=== PATIENT | female | born 1945 | race Caucasian/White ===

== ENCOUNTER 2017-03-02 20:13 | Emergency (ER) | payer MEDICARE, OTHER ==
[~2017-03-02] VITALS: Ht 162.6 cm; Wt 51.0 kg
[~2017-03-02 20:13] MED LIST: ACET650T10 PR; ARIC10TA PO; ASAC400T PO; ASPI81 PO; CELE20TA PO; DARV PO; DEPA250T PO; FISH1000 PO; GLYB1TAB51 PO; HUMULIN 70/30; LEVA0.6316 NEB; LEVO88TA21 PO; LOPE2 PO; LORA10TA7 PO; METH500T3 PO; MIRA0.5T PO; MOME17I; NAPR500 PO; NEUR800T PO; OXYB5TAB33 PO; OYST500T77 PO; PRAV20TA67 PO; PRO-AIR INH; RANI150 PO; STOO100C PO; SYSTANE; TAB-TAB PO; THEO100C PO; [UNRECOGNIZED DRUG - OTHER] PO
[2017-03-02 20:38] VITALS: BP 151/80; PULSE 90; RESP 20; TEMP 98.1; O2SAT 97
[2017-03-02 22:01] VITALS: BP 149/67; PULSE 81; RESP 18; O2SAT 99
[2017-03-02] MEDS ORDERED: METF500T4 PO (22:03)
[2017-03-02] MEDS ORDERED: LISI-519 PO (22:03)
[2017-03-02] MEDS ORDERED: LEVO88TA2 PO (22:04)
[2017-03-02] MEDS ORDERED: OMEP40CA2 PO (22:04)
[2017-03-02] MEDS ORDERED: ASPI325T PO (22:04)
[2017-03-02] MEDS ORDERED: FOSA70TA PO (22:05)
[2017-03-02] MEDS ORDERED: GLIP1TAB51 PO (22:05)
[2017-03-02] MEDS ORDERED: ROSU20 PO (22:05)
[2017-03-02] MEDS ORDERED: LANTUS2P SQ (22:06)
[2017-03-02] MEDS ORDERED: GABA800T PO (22:06)
[2017-03-02] MEDS ORDERED: NOVO7030P2 SQ (22:06)
[2017-03-02] MEDS ORDERED: farxiga PO (22:23)
--- NOTE | 2017-03-02 22:25 | PD ---
HPI Chief Complaint: Medical Clearance Time Seen by Provider: 22:07 Travel History International Travel<30 days: No Contact w/Intl Traveler<30days: No Traveled to known affect area: No History of Present Illness HPI The patient is a 71-year-old female who presents to the emergency department as a Bonner act. The patient apparently met with her physician earlier today, Dr. Ochoa, and when he asked her about her depression and possible suicidal ideation, the patient did state that she occasionally has also suicide. 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 The patient states the neighbor across the street is currently with her partner at home. The patient does have a history of depression, denies any current suicidal plan that she does have intermittent thoughts of suicide. She denies any hallucinations or delusions. She does have a history of diabetes for which she takes oral medications and insulin. She denies any physical complaints, alcohol use, or illicit drug use. She does smoke and has a history of COPD. PFSH Past Medical History Arthritis: Yes Blood Disorders: Yes (HX BLEEDING COLON (HAD COLON RESECTION)) Anxiety: Yes Depression: Yes Cancer: No Cardiovascular Problems: No High Cholesterol: Yes COPD: Yes Diabetes: Yes Patient Takes Glucophage: Yes Endocrine: Yes Gastrointestinal Disorders: Yes (HX DIVERTICULITIS WITH COLON RESECTION) GERD: Yes Glaucoma: No Genitourinary: No Hepatitis: No Hiatal Hernia: No Hypertension: No Immune Disorder: No (POSSIBLE FIBROMYALGIA) Implanted Vascular Access Dvce: Yes Medical other: Yes (LUMBAR STENOSIS, SHORT TERM MEMORY PROBLEMS) Musculoskeletal: Yes Neurologic: Yes Psychiatric: Yes Reproductive: No Respiratory: Yes (COPD, SLEEP APNEA) Sleep Apnea: Yes Thyroid Disease: Yes (HYPOTHYROIDISM) Ulcer: Yes Past Surgical History Abdominal Surgery: Yes (APPENDECTOMY; COLON RESECTION) Appendectomy: Yes Body Medical Devices: EYE LENS S/P CATARACT SX Cardiac Surgery: No Ear Surgery: No Endocrine Surgery: No Eye Surgery: Yes (BILATERAL CATARACT SX WITH LENS IMPLANTS) Genitourinary Surgery: No ( ) Gynecologic Surgery: No Neurologic Surgery: No Oral Surgery: Yes (TONSILECTOMY) Pacemaker: No Thoracic Surgery: No Other Surgery: Yes (ORIF RIGHT WRIST) Social History Alcohol Use: No Tobacco Use: Yes (5PPD,CIGARETS, 50 YEARS) Substance Use: No Allergies-Medications (Allergen,Severity, Reaction): Coded Allergies: Seroquel (Verified Allergy, Severe, 03/02/17) Talwin (Verified Allergy, Severe, 03/02/17) Wellbutrin (Verified Allergy, Severe, 03/02/17) Codeine (Unverified Allergy, Intermediate, NAUSEA, 03/02/17) Lortab (Unverified Allergy, Intermediate, NAUSEA, 03/02/17) Valium (Unverified Allergy, Intermediate, DISORIENTED, 03/02/17) Reported Meds & Prescriptions Reported Meds & Active Scripts Active Reported [farxiga] 5 Mg PO QID Lantus Inj (Insulin Glargine) 1,000 Unit/10 Ml Vial 40 Units SQ HS Novolin 70-30 Inj (Insulin Human Isoph/Insulin Regular) 1,000 Unit/10 Ml Vial 15 Units SQ TID Gabapentin 800 Mg Tab 800 Mg PO TID Fosamax (Alendronate Sodium) 70 Mg Tab 35 Mg PO Q7D Glipizide ER (Glipizide) 10 Mg Felipa 10 Mg PO BID Take with breakfast or first main meal of the day Crestor (Rosuvastatin Calcium) 20 Mg Tab 20 Mg PO DAILY Aspirin 325 Mg Tab 325 Mg PO DAILY Levothyroxine (Levothyroxine Sodium) 88 Mcg Tab 88 Mcg PO DAILY Omeprazole 40 Mg Cap 40 Mg PO DAILY Metformin ER (Metformin HCl) 500 Mg Felipa 500 Mg PO DAILY With evening meal Lisinopril 5 Mg Tab 5 Mg PO DAILY Review of Systems Except as stated in HPI: all other systems reviewed are Neg General / Constitutional: No: Fever Cardiovascular: No: Chest Pain or Discomfort Respiratory: No: Shortness of Breath Gastrointestinal: No: Nausea, Vomiting, Abdominal Pain Genitourinary: No: Dysuria Musculoskeletal: No: Weakness Psychiatric: Positive: Depression, Suicidal Ideations, No: Substance Abuse, Homicidal Ideation Physical Exam Narrative GENERAL: Awake, alert, pleasant 71-year-old female who appears her stated age is in no acute respiratory distress. SKIN: Focused skin assessment warm/dry. HEAD: Atraumatic. Normocephalic. EYES: No injection or drainage. ENT: No nasal bleeding or discharge. Upper dentures in place. Slightly dry mucous membranes. NECK: Trachea midline. No JVD. CARDIOVASCULAR: Regular rate and rhythm. No murmur appreciated. RESPIRATORY: No accessory muscle use. Clear to auscultation. Breath sounds equal bilaterally. GASTROINTESTINAL: Abdomen soft, non-tender, nondistended. No rebound tenderness. MUSCULOSKELETAL: No obvious deformities. No clubbing. No cyanosis. No edema. NEUROLOGICAL: Awake and alert. No obvious cranial nerve deficits. Motor grossly within normal limits. Normal speech. Nonfocal. Oriented 4. Follows commands without difficulty. PSYCHIATRIC: Appropriate mood and affect; insight and judgment normal. Data Data Last Documented VS Vital Signs Date Time Temp Pulse Resp B/P Pulse Ox O2 Delivery O2 Flow Rate FiO2 03/02/17 22:01 81 18 149/67 99 Room Air 03/02/17 20:38 98.1 Orders Complete Blood Count With Diff (03/02/17 20:42) Comprehensive Metabolic Panel (03/02/17 20:42) Urinalysis - C+S If Indicated (03/02/17 20:42) Psych Screen (03/02/17 20:42) Drug Screen, Random Urine (03/02/17 20:42) Alcohol (Ethanol) (03/02/17 20:42) Sodium Chlorid 0.9% 500 Ml Inj (Ns 500 M (03/02/17 22:30) Urine Culture (03/02/17 22:10) Labs Laboratory Tests Test 03/02/17 22:10 White Blood Count 11.7 TH/MM3 Red Blood Count 4.73 MIL/MM3 Hemoglobin 14.1 GM/DL Hematocrit 41.7 % Mean Corpuscular Volume 88.1 FL Mean Corpuscular Hemoglobin 29.7 PG Mean Corpuscular Hemoglobin 33.7 % Concent Red Cell Distribution Width 13.3 % Platelet Count 295 TH/MM3 Mean Platelet Volume 9.6 FL Neutrophils (%) (Auto) 59.7 % Lymphocytes (%) (Auto) 31.8 % Monocytes (%) (Auto) 6.1 % Eosinophils (%) (Auto) 2.1 % Basophils (%) (Auto) 0.3 % Neutrophils # (Auto) 7.0 TH/MM3 Lymphocytes # (Auto) 3.7 TH/MM3 Monocytes # (Auto) 0.7 TH/MM3 Eosinophils # (Auto) 0.2 TH/MM3 Basophils # (Auto) 0.0 TH/MM3 CBC Comment DIFF FINAL Differential Comment Urine Color YELLOW Urine Turbidity HAZY Urine pH 5.5 Urine Specific [place] 1.014 Urine Protein NEG mg/dL Urine Glucose (UA) 1000 mg/dL Urine Ketones NEG mg/dL Urine Occult Blood NEG Urine Nitrite NEG Urine Bilirubin NEG Urine Urobilinogen LESS THAN 2.0 MG/DL Urine Leukocyte Esterase LARGE Urine RBC 2 /hpf Urine WBC 52 /hpf Urine Squamous Epithelial <1 /hpf Cells Urine Hyaline Casts 1 /lpf Urine Mucus FEW /lpf Microscopic Urinalysis Comment CULTURE INDICATED Sodium Level 132 MEQ/L Potassium Level 4.3 MEQ/L Chloride Level 96 MEQ/L Carbon Dioxide Level 29.7 MEQ/L Anion Gap 6 MEQ/L Blood Urea Nitrogen 11 MG/DL Creatinine 1.04 MG/DL Estimat Glomerular Filtration 52 ML/MIN Rate Random Glucose 299 MG/DL Calcium Level 9.0 MG/DL Total Bilirubin 0.3 MG/DL Aspartate Amino Transf 11 U/L (AST/SGOT) Alanine Aminotransferase 19 U/L (ALT/SGPT) Alkaline Phosphatase 93 U/L Total Protein 7.9 GM/DL Albumin 3.7 GM/DL Urine Opiates Screen NEG Urine Barbiturates Screen NEG Urine Amphetamines Screen NEG Urine Benzodiazepines Screen NEG Urine Cocaine Screen NEG Urine Cannabinoids Screen NEG Ethyl Alcohol Level LESS THAN 3 MG/DL MDM Medical Decision Making Medical Screen Exam Complete: Yes Emergency Medical Condition: Yes Medical Record Reviewed: Yes Interpretation(s) Laboratory Tests Test 03/02/17 22:10 White Blood Count 11.7 TH/MM3 Red Blood Count 4.73 MIL/MM3 Hemoglobin 14.1 GM/DL Hematocrit 41.7 % Mean Corpuscular Volume 88.1 FL Mean Corpuscular Hemoglobin 29.7 PG Mean Corpuscular Hemoglobin 33.7 % Concent Red Cell Distribution Width 13.3 % Platelet Count 295 TH/MM3 Mean Platelet Volume 9.6 FL Neutrophils (%) (Auto) 59.7 % Lymphocytes (%) (Auto) 31.8 % Monocytes (%) (Auto) 6.1 % Eosinophils (%) (Auto) 2.1 % Basophils (%) (Auto) 0.3 % Neutrophils # (Auto) 7.0 TH/MM3 Lymphocytes # (Auto) 3.7 TH/MM3 Monocytes # (Auto) 0.7 TH/MM3 Eosinophils # (Auto) 0.2 TH/MM3 Basophils # (Auto) 0.0 TH/MM3 CBC Comment DIFF FINAL Differential Comment Urine Color YELLOW Urine Turbidity HAZY Urine pH 5.5 Urine Specific [place] 1.014 Urine Protein NEG mg/dL Urine Glucose (UA) 1000 mg/dL Urine Ketones NEG mg/dL Urine Occult Blood NEG Urine Nitrite NEG Urine Bilirubin NEG Urine Urobilinogen LESS THAN 2.0 MG/DL Urine Leukocyte Esterase LARGE Urine RBC 2 /hpf Urine WBC 52 /hpf Urine Squamous Epithelial <1 /hpf Cells Urine Hyaline Casts 1 /lpf Urine Mucus FEW /lpf Microscopic Urinalysis Comment CULTURE INDICATED Sodium Level 132 MEQ/L Potassium Level 4.3 MEQ/L Chloride Level 96 MEQ/L Carbon Dioxide Level 29.7 MEQ/L Anion Gap 6 MEQ/L Blood Urea Nitrogen 11 MG/DL Creatinine 1.04 MG/DL Estimat Glomerular Filtration 52 ML/MIN Rate Random Glucose 299 MG/DL Calcium Level 9.0 MG/DL Total Bilirubin 0.3 MG/DL Aspartate Amino Transf 11 U/L (AST/SGOT) Alanine Aminotransferase 19 U/L (ALT/SGPT) Alkaline Phosphatase 93 U/L Total Protein 7.9 GM/DL Albumin 3.7 GM/DL Urine Opiates Screen NEG Urine Barbiturates Screen NEG Urine Amphetamines Screen NEG Urine Benzodiazepines Screen NEG Urine Cocaine Screen NEG Urine Cannabinoids Screen NEG Ethyl Alcohol Level LESS THAN 3 MG/DL Differential Diagnosis Differential diagnosis includes depressive disorder NOS, adjustment reaction, stress reaction, bipolar affective disorder, suicidal ideation, hyperglycemia, dehydration. Narrative Course IV was established, labs are drawn and sent, and the patient was placed on cardiac telemetry monitoring and continuous pulse oximetry monitoring. The patient was administered 500 cc of normal saline. Accu-Chek at bedside was 237. Psychiatric evaluation was ordered. Glucose is mildly elevated at 299, otherwise labs are unremarkable. Patient is medically clear to be evaluated by psychiatry. The patient was covered with 8 units of insulin. Diagnosis Primary Impression: Depressive disorder Additional Impression: Hyperglycemia Condition: Stable Michael Cheney MD March 02, 2017 22:25
[2017-03-02] MEDS ORDERED: SODIUM CHLORID 0.9% 500 ML INJ 500 ML IV ONE (22:30)
[2017-03-02 22:34] LABS: BASOPHIL % 0.3 % (0.0-2.0); EOSINOPHIL # 0.2 TH/MM3 (0-0.4); EOSINOPHIL % 2.1 % (0.0-4.0); HEMATOCRIT 41.7 % (35.0-46.0); HEMO FLAGS DIFF FINAL; LYMPH % 31.8 % (9.0-44.0); LYMPHOCYTE # 3.7 TH/MM3 (1.0-4.8); MEAN CELL VOLUME 88.1 FL (80.0-100.0); MEAN CORPUSCULAR HEMOGLOBIN 29.7 PG (27.0-34.0); MEAN CORPUSCULAR HGB CONC 33.7 % (32.0-36.0); MONO % 6.1 % (0.0-8.0); NEUT % 59.7 % (16.0-70.0); PLATELET COUNT 295 TH/MM3 (150-450); RED BLOOD COUNT 4.73 MIL/MM3 (4.00-5.30); RED CELL DISTRIBUTION WIDTH 13.3 % (11.6-17.2); WHITE BLOOD COUNT 11.7 TH/MM3 (4.0-11.0)
[2017-03-02 22:37] LABS: BLOOD, URINE NEG (NEG); GLUCOSE,URINE 1000 mg/dL (NEG); HYALINE CAST, URINE 1 /lpf (RARE); KETONE, URINE NEG (NEG); MUCUS URINE FEW /lpf (OCC); NITRITE,URINE NEG (NEG); PH, URINE 5.5 (5.0-8.5); SQUAMOUS EPITHELIAL CELL URINE <1 /hpf (0-5); URINE COLOR YELLOW (YELLW/STRAW)
[2017-03-02 22:39] LABS: BARBITURATES, URINE NEG (NEG); COMMENT (UR) CULTURE INDICATED; CULTURE IF INDICATED CULTURE INDICATED
[2017-03-02 23:10] LABS: ANION GAP 6 MEQ/L (5-15); AST (GOT) 11 U/L (15-37); BICARBONATE 29.7 MEQ/L (21.0-32.0); BLOOD UREA NITROGEN 11 MG/DL (7-18); CHLORIDE 96 MEQ/L (98-107); GLOMERULAR FILTRATION RATE 52 ML/MIN (>89); POTASSIUM 4.3 MEQ/L (3.5-5.1); SODIUM (NA) 132 MEQ/L (136-145)
[2017-03-02 23:11] LABS: ALT (GPT) 19 U/L (10-53)
[2017-03-02 23:13] LABS: ALKALINE PHOSPHATASE 93 U/L (45-117); TOTAL BILIRUBIN ADULT 0.3 MG/DL (0.2-1.0)
[2017-03-02 23:19] LABS: AMPHETAMINE, URINE NEG (NEG); COCAINE, URINE NEG (NEG)
[2017-03-02] MEDS ORDERED: INSULIN ASPART 1,000 UNITS/10 ML VIAL SQ ONE (23:45)
[2017-03-03 03:56] VITALS: BP 124/89; PULSE 89; RESP 19; O2SAT 97
[2017-03-03 06:27] VITALS: BP 126/60; PULSE 97; RESP 18; O2SAT 98
[2017-03-03] MEDS ORDERED: ACETAMINOPHEN 325 MG TAB PO ONE (08:30)
[2017-03-03 11:19] VITALS: BP 129/64; PULSE 81; RESP 18; O2SAT 97
[2017-03-03 11:20] VITALS: BP 118/63; PULSE 86; RESP 18; O2SAT 96
[2017-03-03 14:48] VITALS: BP 129/64; PULSE 81; RESP 18; O2SAT 97
--- NOTE | 2017-03-03 14:50 | PD ---
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 Patient states that her life is stressful but she has no intention whatsoever of ending it. She is very warm and smiling with this physician and the staff here. Her cognition is intact and she verbally contracts for safety. She exhibits no psychotic symptoms. She has no suicidal or homicidal plan or intent at this time. She denies significant symptoms of depression as well. She is willing to seek help on an outpatient basis. PFSH Past Medical History Arthritis: Yes Blood Disorders: Yes (HX BLEEDING COLON (HAD COLON RESECTION)) Anxiety: Yes Depression: Yes Cancer: No Cardiovascular Problems: No High Cholesterol: Yes COPD: Yes Diabetes: Yes Patient Takes Glucophage: Yes Endocrine: Yes Gastrointestinal Disorders: Yes (HX DIVERTICULITIS WITH COLON RESECTION) GERD: Yes Glaucoma: No Genitourinary: No Hepatitis: No Hiatal Hernia: No Hypertension: No Immune Disorder: No (POSSIBLE FIBROMYALGIA) Implanted Vascular Access Dvce: Yes Medical other: Yes (LUMBAR STENOSIS, SHORT TERM MEMORY PROBLEMS) Musculoskeletal: Yes Neurologic: Yes Psychiatric: Yes Reproductive: No Respiratory: Yes (COPD, SLEEP APNEA) Sleep Apnea: Yes Thyroid Disease: Yes (HYPOTHYROIDISM) Ulcer: Yes Past Surgical History Abdominal Surgery: Yes (APPENDECTOMY; COLON RESECTION) Appendectomy: Yes Body Medical Devices: EYE LENS S/P CATARACT SX Cardiac Surgery: No Ear Surgery: No Endocrine Surgery: No Eye Surgery: Yes (BILATERAL CATARACT SX WITH LENS IMPLANTS) Genitourinary Surgery: No ( ) Gynecologic Surgery: No Neurologic Surgery: No Oral Surgery: Yes (TONSILECTOMY) Pacemaker: No Thoracic Surgery: No Other Surgery: Yes (ORIF RIGHT WRIST) Psychiatric History Psychiatric History Hx Psychiatric Treatment: DENIES HX, IS NOW HAVING SYMPTOMS OF DEPRESSION History of Inpatient Treatment: No Guns or firearms in home: No Social History Hx Alcohol Use: No Hx Tobacco Use: Yes (5PPD,CIGARETS, 50 YEARS) Hx Substance Use: No (4-5 PPD) Substance Use Type: Nicotine/Cigarettes Hx of Substance Use Treatment: No Allergies-Medications (Allergen,Severity, Reaction): Coded Allergies: Seroquel (Verified Allergy, Severe, 03/02/17) Talwin (Verified Allergy, Severe, 03/02/17) Wellbutrin (Verified Allergy, Severe, 03/02/17) Codeine (Unverified Allergy, Intermediate, NAUSEA, 03/02/17) Lortab (Unverified Allergy, Intermediate, NAUSEA, 03/02/17) Valium (Unverified Allergy, Intermediate, DISORIENTED, 03/02/17) Reported Meds & Prescriptions Reported Meds & Active Scripts Active Reported [farxiga] 5 Mg PO QID Lantus Inj (Insulin Glargine) 1,000 Unit/10 Ml Vial 40 Units SQ HS Novolin 70-30 Inj (Insulin Human Isoph/Insulin Regular) 1,000 Unit/10 Ml Vial 15 Units SQ TID Gabapentin 800 Mg Tab 800 Mg PO TID Fosamax (Alendronate Sodium) 70 Mg Tab 35 Mg PO Q7D Glipizide ER (Glipizide) 10 Mg Felipa 10 Mg PO BID Take with breakfast or first main meal of the day Crestor (Rosuvastatin Calcium) 20 Mg Tab 20 Mg PO DAILY Aspirin 325 Mg Tab 325 Mg PO DAILY Levothyroxine (Levothyroxine Sodium) 88 Mcg Tab 88 Mcg PO DAILY Omeprazole 40 Mg Cap 40 Mg PO DAILY Metformin ER (Metformin HCl) 500 Mg Felipa 500 Mg PO DAILY With evening meal Lisinopril 5 Mg Tab 5 Mg PO DAILY Review of Systems Except as stated in HPI: all other systems reviewed are Neg Exam Alert: Yes Mobile: Person, Place, Date, Situation Mood: Calm Affect: Appropriate Speech: Clear Eye Contact: Normal Memory Intact: Immediate, Recent, Remote Insight/Judgement Adequate. MDM Medical Decision Making Medical Record Reviewed: Yes Assessment/Plan This physician does not feel patient meets Bonner act criteria or inpatient psychiatric hospitalization criteria. She is perfectly capable of seeking treatment on an outpatient basis. She is competent and verbally jacque for safety. Orders Complete Blood Count With Diff (03/02/17 20:42) Comprehensive Metabolic Panel (03/02/17 20:42) Urinalysis - C+S If Indicated (03/02/17 20:42) Psych Screen (03/02/17 20:42) Drug Screen, Random Urine (03/02/17 20:42) Alcohol (Ethanol) (03/02/17 20:42) Sodium Chlorid 0.9% 500 Ml Inj (Ns 500 M (03/02/17 22:30) Urine Culture (03/02/17 22:10) Insulin Aspart Inj (Novolog Inj) (03/02/17 23:45) Diet Diabetic (03/03/17 Breakfast) Acetaminophen (Tylenol) (03/03/17 08:30) Diet Diabetic (03/03/17 Lunch) Results Vital Signs Date Time Temp Pulse Resp B/P Pulse Ox O2 Delivery O2 Flow Rate FiO2 03/03/17 11:19 81 18 129/64 97 Room Air 03/03/17 06:27 97 18 126/60 98 Room Air 03/03/17 03:56 89 19 124/89 97 Room Air 03/02/17 22:01 81 18 149/67 99 Room Air 03/02/17 20:38 98.1 90 20 151/80 97 Laboratory Tests Test 03/02/17 22:10 White Blood Count 11.7 Red Blood Count 4.73 Hemoglobin 14.1 Hematocrit 41.7 Mean Corpuscular Volume 88.1 Mean Corpuscular Hemoglobin 29.7 Mean Corpuscular Hemoglobin 33.7 Concent Red Cell Distribution Width 13.3 Platelet Count 295 Mean Platelet Volume 9.6 Neutrophils (%) (Auto) 59.7 Lymphocytes (%) (Auto) 31.8 Monocytes (%) (Auto) 6.1 Eosinophils (%) (Auto) 2.1 Basophils (%) (Auto) 0.3 Neutrophils # (Auto) 7.0 Lymphocytes # (Auto) 3.7 Monocytes # (Auto) 0.7 Eosinophils # (Auto) 0.2 Basophils # (Auto) 0.0 CBC Comment DIFF FINAL Differential Comment Urine Color YELLOW Urine Turbidity HAZY Urine pH 5.5 Urine Specific [place] 1.014 Urine Protein NEG Urine Glucose (UA) 1000 Urine Ketones NEG Urine Occult Blood NEG Urine Nitrite NEG Urine Bilirubin NEG Urine Urobilinogen LESS THAN 2.0 Urine Leukocyte Esterase LARGE Urine RBC 2 Urine WBC 52 Urine Squamous Epithelial <1 Cells Urine Hyaline Casts 1 Urine Mucus FEW Microscopic Urinalysis Comment CULTURE INDICATED Sodium Level 132 Potassium Level 4.3 Chloride Level 96 Carbon Dioxide Level 29.7 Anion Gap 6 Blood Urea Nitrogen 11 Creatinine 1.04 Estimat Glomerular Filtration 52 Rate Random Glucose 299 Calcium Level 9.0 Total Bilirubin 0.3 Aspartate Amino Transf 11 (AST/SGOT) Alanine Aminotransferase 19 (ALT/SGPT) Alkaline Phosphatase 93 Total Protein 7.9 Albumin 3.7 Urine Opiates Screen NEG Urine Barbiturates Screen NEG Urine Amphetamines Screen NEG Urine Benzodiazepines Screen NEG Urine Cocaine Screen NEG Urine Cannabinoids Screen NEG Ethyl Alcohol Level LESS THAN 3 Date/Time Procedure Status Source Growth 03/02/17 22:10 Urine Culture Worksheet Urine Clean Catch Pending Diagnosis Primary Impression: Adjustment disorder with depressed mood Condition: Stable Iban Tenorio MD Mar 03, 2017 14:50
[2017-03-03 14:54] VITALS: BP 137/77; PULSE 82; RESP 18; O2SAT 98
== END 2017-03-03 17:38 | disposition home or self-care (01) ==
LOC: NEPE 20:13 → NEPJ 03-03 17:38
DX: F43.21 Adjustment disorder with depressed mood (principal); E11.65 Type 2 diabetes mellitus with hyperglycemia; J44.9 Chronic obstructive pulmonary disease, unspecified; E78.00 Pure hypercholesterolemia, unspecified; E03.9 Hypothyroidism, unspecified; G47.30 Sleep apnea, unspecified; F17.210 Nicotine dependence, cigarettes, uncomplicated; Z79.84 Long term (current) use of oral hypoglycemic drugs; Z79.4 Long term (current) use of insulin; B96.20 Unspecified Escherichia coli [E. coli] as the cause of diseases classified elsewhere
CPT/HCPCS: 80053; 80307; 81001; 85025; 87077; 87086; 87186; 96360; 96372; 99284; J1815; J7040